=== PATIENT | male | born 1980 | race Caucasian/White ===

== ENCOUNTER 2024-09-22 15:07 | Outpatient (AMB) | payer OTHER, SELFPAY ==
--- NOTE | 2024-09-22 15:15 | A.OFFVIS_ITS ---
Vital Signs 09/22/24 15:34 Height 5 ft 11 in Weight 171 lb 4.787 oz BMI 23.9 BP 124/80 Blood Pressure Location Lt brachial Position Sitting Pulse 75 Pulse Source Pulse Oximeter Pulse Oximetry (%) 98 Oxygen Delivery Method Room Air Intake Visit Reasons: abnormal lab/CM APT Intake Note: Patient presents for abnormal lab. Feel pain on both elbows, right and left hand wrist and fingers. Also both knees and both ankles. It started about 1 year 1/2 ago.' Allergies amoxicillin Allergy (Mild, Verified 09/22/24 15:19) Unknown Penicillins Allergy (Mild, Verified 09/22/24 15:19) Unknown Medication List - Last Reconciled 09/22/24 by Samara Leyva MD cholecalciferol (vitamin D3) 50 mcg PO DAILY cyanocobalamin (vitamin B-12) (Vitamin B-12) 1,000 mcg PO DAILY fenofibrate 54 mg PO DAILY omeprazole 10 mg PO DAILY HPI Comments Details: This is a 44-year-old male who presents for evaluation of multiple joint pain and positive LETTY. The condition started about 1-1/2 years ago. He states that he gets pain in his fingers, elbows, ankles and knees. He would get elbow pain whenever he bags into objects or this is on his elbows he will also have pain when moving his fingers radially. He denies any significant swelling or trauma. States that he has been under significant stress recently. His father from cancer. He states that he has lost about 10 lb. He has not been eating as much. He denies any fevers. Denies any Raynaud's. Denies any history of DVT/PE. He states that he snores at night PFSH Family History Father History of arthritis Cancer Mother History of arthritis Sister History of arthritis Social History Household Members: Spouse Housing: House Alcohol intake: current Comment: [facility] Patient Tobacco Use Status: Never used Tobacco Use of substances other than those prescribed or required for medical reasons: Yes Substance Use Type: Marijuana Substance Use Frequency: Socially Review of Systems Const Reports fatigue, Reports weakness and Reports weight loss Musc Reports arthralgias and Denies joint swelling Neuro Reports weakness Psych Reports abnormal sleep pattern and Reports anxiety Endo Reports fatigue Physical Exam Vital Signs: Last Vital Signs Pulse 75 09/22/24 15:34 BP 124/80 09/22/24 15:34 Pulse Ox 98 09/22/24 15:34 Oxygen Delivery Method Room Air 09/22/24 15:34 BMI result Body Mass Index 23.9 Const General: cooperative, healthy appearing and comfortable Nutritional Appearance: average body habitus Orientation/consciousness: patient oriented x3 Limitations: no limitations HEENT Head: Yes normocephalic and Yes atraumatic Mouth: moist mucous membranes Resp Effort & Inspection: normal respiratory effort and able to speak in complete sentences Auscultation: clear to auscultation bilaterally Cardio Rate: regular rate Rhythm: regular rhythm Skin General skin exam: no rashes or lesions noted Neuro General: patient oriented x3 Extrem Other: No active synovitis Normal nailfold capillaroscopy Negative resisted wrist extension and resisted wrist flexion test bilaterally Few fibromyalgia tender points Assessment & Plan Assessment & Plan (1) LETTY positive: Code(s): R76.8 - Other specified abnormal immunological findings in serum Category: Medical Plan: This is a 44-year-old male who presents for evaluation of positive LETTY 1-160 nucleolar pattern in the context of diffuse pain. On exam I do not see any signs suggestive of an autoimmune rheumatic disease. Discussed with patient that about 20% of the population can have a positive LETTY with no underlying autoimmune rheumatic illness Clinical picture rather consistent with fibromyalgia Discussed management of fibromyalgia with patient. Is a noninflammatory, non- autoimmune central afferent processing disorder leading to a diffuse pain syndrome. I suggested evaluation by a psychotherapist to address any underlying anxiety/depression. Try to follow sleep hygiene practices. Request a referral for a sleep study by PCP to rule out GIOVANNA. Patient would benefit from increased physical activity, either through formal physical therapy or by joining a gym. Advised patient that she should start activity slowly and increase as tolerated. Consider low-impact exercises such as walking, swimming, aqua therap, light weights Plan I spent 30 minutes reviewing patient's chart, evaluating patient, ordering diagnostic workup, counseling patient and documenting in the chart Coding Level of Care Code New Pt Level 3 (70384) Diagnoses LETTY positive R76.8
[2024-09-22 15:34] VITALS: BP 124/80; PULSE 75; O2SAT 98; BMI 23.9
== END 2024-09-22 16:03 | disposition home or self-care (01) ==
PROVIDERS: PCP Internal Medicine; Visit Provider Student in an Organized Health Care Education/Training Program
DX: R76.8 Other specified abnormal immunological findings in serum (principal)
CPT/HCPCS: 99203

== ENCOUNTER → 2024-09-22 15:07 | Outpatient (BNVA) | payer OTHER, SELFPAY | PROVIDERS: PCP Internal Medicine; Visit Provider Student in an Organized Health Care Education/Training Program ==